=== PATIENT | female | born 1955 | race Caucasian/White ===

== ENCOUNTER 2021-12-15 20:52 | Emergency (ER) | payer OTHER ==
[2021-12-15 21:12] VITALS: BP 97/70; PULSE 86; TEMP 99; BMI 20.3
== END 2021-12-16 00:32 | disposition home or self-care (01) ==
LOC: FER 20:52
PROC: 0HQ1XZZ Repair Face Skin, External Approach (ICD-10-PCS; principal; 2021-12-15)
DX: S01.81XA Laceration without foreign body of other part of head, initial encounter (principal); W19.XXXA Unspecified fall, initial encounter
CPT/HCPCS: 70486-TC; 99284-25